=== PATIENT | female | born 1950 | race Caucasian/White ===

== ENCOUNTER 2017-07-29 19:57 | Emergency (ER) | payer MEDICARE ==
[2017-07-29 20:07] VITALS: BP 122/73
--- NOTE | 2017-07-29 21:25 | XRay Report ---
FINAL REPORT EXAM: XR KNEE 4+V LT HISTORY: injury. swollen and painfill/RO fx COMPARISON: None available. FINDINGS: Four views of the left knee obtained. There is a benign osteochondroma arising from the medial margin the proximal tibial metaphysis measuring 9 x 4 millimeters. There is a transverse fracture extending through the patella. Appears to be at least mild separation of fracture segments by 3-4 millimeters. Prominent soft tissue swelling. Medial lateral joint space compartments are preserved. No dislocation of the patella. IMPRESSION: Transverse fracture of the mid patella.
--- NOTE | 2017-07-29 22:07 | Emergency Department Report ---
ED Fall HPI - General Chief Complaint: Fall Stated Complaint: LT KNEE PAIN Time Seen by Provider: 07/29/17 21:57 Source: patient Mode of arrival: Wheelchair Limitations: No Limitations (speaks bengali and urdu) - History of Present Illness MD Complaint: fall (at the lutz over a mat on the floor) -: hour(s) (3HRS AGO) Fall From: standing Fall Witnessed: yes, by family, yes, by bystander Place Fall Occurred: other (LUTZ SHOP) Loss of Consciousness: none Prolonged Down Time?: no Symptoms Prior to Fall: none Location: other (LEFT KNEE) Location - Extremities: Left: Knee Severity: severe Severity scale (0 -10): 10 Quality: aching Context: tripped/slipped Associated Symptoms: unable to walk - Related Data Previous Rx's Medication Instructions Recorded Last Taken Type oxyCODONE /ACETAMINOPHEN [Percocet 1 tab PO Q6HR PRN #14 tablet 07/29/17 Unknown Rx 5/325] Allergies Allergy/AdvReac Type Severity Reaction Status Date / Time No Known Allergies Allergy Unverified 07/29/17 20:14 ED Review of Systems ROS: Stated complaint: LT KNEE PAIN Other details as noted in HPI Constitutional: denies: chills, fever Eyes: denies: eye pain, eye discharge, vision change ENT: denies: ear pain, throat pain Respiratory: denies: cough, shortness of breath, wheezing Cardiovascular: denies: chest pain, palpitations Endocrine: no symptoms reported Gastrointestinal: denies: abdominal pain, nausea, diarrhea Genitourinary: denies: urgency, dysuria, discharge Musculoskeletal: joint swelling, arthralgia. 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 - Surgical History Additional Surgical History: contractors at age 10,has incisional surgery on leg and ,right arm and left upper thigh to stretch muscles - Social History Smoking Status: Never Smoker Substance Use Type: None - Medications Home Medications: Home Medications Medication Instructions Recorded Confirmed Last Taken Type oxyCODONE /ACETAMINOPHEN [Percocet 1 tab PO Q6HR PRN #14 tablet 07/29/17 Unknown Rx 5/325] ED Physical Exam - General Limitations: No Limitations General appearance: alert, in no apparent distress - Head Head exam: Present: atraumatic, normocephalic - Eye Eye exam: Present: normal appearance, EOMI - ENT ENT exam: Present: mucous membranes moist - Neck Neck exam: Present: normal inspection, full ROM - Respiratory Respiratory exam: Present: normal lung sounds bilaterally. Absent: respiratory distress, wheezes, rhonchi, chest wall tenderness - Cardiovascular Cardiovascular Exam: Present: regular rate, normal rhythm. Absent: systolic murmur, diastolic murmur, rubs, gallop - GI/Abdominal GI/Abdominal exam: Present: soft, normal bowel sounds. Absent: distended, tenderness, guarding, rebound - Rectal Rectal exam: Present: deferred - Extremities Exam Extremities exam: Present: normal inspection, tenderness (LEFT KNEE TENDERNESS, ECCHYMOSIS, SEVERE SWELLING) - Back Exam Back exam: Present: normal inspection, full ROM - Neurological Exam Neurological exam: Present: alert, oriented X3 - Psychiatric Psychiatric exam: Present: normal affect, normal mood - Skin Skin exam: Present: warm, dry, intact, normal color. Absent: rash ED Course Vital Signs 07/29/17 07/29/17 20:04 20:07 Temperature 97.7 F 97.7 F Pulse Rate 59 L 62 Respiratory 18 18 Rate Blood Pressure 122/73 122/73 O2 Sat by Pulse 98 100 Oximetry Critical care attestation.: If time is entered above; I have spent that time in minutes in the direct care of this critically ill patient, excluding procedure time. ED Disposition Clinical Impression: Left patella fracture Qualifiers: Encounter type: initial encounter Fracture type: closed Fracture morphology: transverse Fracture alignment: displaced Qualified Code(s): S82.032A - Displaced transverse fracture of left patella, initial encounter for closed fracture DJD (degenerative joint disease) Qualifiers: Osteoarthritis location: knee Osteoarthritis type: primary Laterality: left Qualified Code(s): M17.12 - Unilateral primary osteoarthritis, left knee Disposition: TO HOME OR SELFCARE Is pt being admited?: No Does the pt Need Aspirin: No Condition: Stable Instructions: Patellar Fracture (ED), Hinged Knee Brace (ED), Osteoarthritis ( ED) Additional Instructions: PLEASE SEE DR DE PAZ ON MONDAY. CALL HIM FOR AN APPOINTMENT. Prescriptions: oxyCODONE /ACETAMINOPHEN [Percocet 5/325] 1 tab PO Q6HR PRN #14 tablet PRN Reason: Pain Referrals: PRIMARY CARE, [Primary Care Provider] - 3-5 Days KATHERINE DE PAZ MD [Staff Physician] - 3-5 Days Time of Disposition: 22:34
[2017-07-29] MEDS ORDERED: TORADOL IM ONE (22:08)
== END 2017-07-29 23:20 | disposition home or self-care (01) ==
LOC: ED 19:57
DX: S82.032A Displaced transverse fracture of left patella, initial encounter for closed fracture (principal); M17.12 Unilateral primary osteoarthritis, left knee; E78.00 Pure hypercholesterolemia, unspecified; W01.0XXA Fall on same level from slipping, tripping and stumbling without subsequent striking against object, initial encounter; Y93.89 Activity, other specified; Y99.8 Other external cause status; Y92.513 Shop (commercial) as the place of occurrence of the external cause
CPT/HCPCS: 29505; 73564; 96372; 99283; J1885